=== PATIENT | male | born 1975 | race Caucasian/White ===

== ENCOUNTER 2016-10-22 22:24 | Emergency (ER) | payer BC ==
--- NOTE | ~2016-10-22 | CR133 ---
[facility] A [facility] RADIOLOGY TEXT RESULTS PATIENT: GAEL PENA LOCATION: SED : [birth year] UNIT #: [id number] AGE: [address]: Ang Winchester MD SEX: M ORDER DR: [id number] [place] [id number] E MR#: [id number] Acc #: [id number] NAME: GAEL PENA. : 1975 SEX: M STUDY DATE/TIME: 10/22/2016 23:00 UNIT: SED ROOM: STUDY DESCRIPTION: CR Forearm 2 View Rt Attending Physician: Ang Winchester M.D. Ordering Physician: Ang Winchester M.D. MEDICAL IMAGING REPORT This report is preliminary unless electronic signature is present. EXAM Right forearm series INDICATION Right forearm pain and swelling for the past few days. PROCEDURE Two views of the right forearm. COMPARISON 10/28/2012. FINDINGS There has been interval plate and screw fixation of the distal ulna. No lucency around the hardware. No acute fracture. No dislocation. IMPRESSION 1. No acute findings. 2. Interval side plate and screw fixation of the distal ulna. Dictated by... Taiwo Rich M.D. THIS IS AN ELECTRONICALLY VERIFIED REPORT Taiwo Rich M.D. at 10/23/2016 9:55 PM EED/saul TD: 10/23/2016 08:30 JOB #: [id number] [facility] A Service of [facility] RADIOLOGY TEXT RESULTS PATIENT: GAEL PENA LOCATION: SED : [birth year] UNIT #: [id number] AGE: [address]: Ang Winchester MD SEX: M ORDER DR: MEDICAL IMAGING REPORT Page 1 of 1
[~2016-10-22 22:24] MED LIST: DICLOFENAC PO; EC-NAPROSYN500 MG PO; FLEXERIL PO; FLEXERIL10 MG PO; HYDROCODON-ACE1 EACH PO; IBUPROFEN800 MG PO; KEFLEX; KEFLEX PO; LORTAB 2.5/5001 TAB PO; LORTAB 7.5-5001 TAB PO; NAPROXEN; NO MEDICATIONS; PROCTOFOAM-HC 110 GM TOP; TRIAMCINOLONE A15 G3 TOP; VICODIN 5/1 TAB 5/50 PO; VOLTAREN75 MG PO
== END 2016-10-22 23:39 | disposition home or self-care (01) ==
LOC: SED 22:24
DX: S56.911A Strain of unspecified muscles, fascia and tendons at forearm level, right arm, initial encounter (principal); F17.200 Nicotine dependence, unspecified, uncomplicated; X58.XXXA Exposure to other specified factors, initial encounter
CPT/HCPCS: 73090; 99283